=== PATIENT | female | born 1980 | race Two or more races ===

== ENCOUNTER 2017-08-15 18:51 | Emergency (ER) | payer MEDICAID ==
[~2017-08-15] VITALS: Ht 162.6 cm; Wt 53.6 kg
[2017-08-15] MEDS ORDERED: LIDOCAINE HCL 1% 10 ML VIAL INJ ONE (20:45)
[2017-08-15] MEDS ORDERED: PERTUSS(ACELL),DIPH,TET VAC/PF 0.5 ML VIAL IM ONE (20:45)
[2017-08-15] MEDS ORDERED: CIPROFLOXACIN HCL 250 MG TABLET PO ONE (22:00)
[2017-08-15 23:56] VITALS: BP 131/79
== END 2017-08-16 00:32 | disposition home or self-care (01) ==
LOC: EMS 18:52
DX: S91.312A Laceration without foreign body, left foot, initial encounter (principal); F17.210 Nicotine dependence, cigarettes, uncomplicated; F12.10 Cannabis abuse, uncomplicated; W45.8XXA Other foreign body or object entering through skin, initial encounter; Y93.89 Activity, other specified; Y92.89 Other specified places as the place of occurrence of the external cause; Y99.8 Other external cause status
CPT/HCPCS: 12002; 90471; 90715; 99283; J3490; 29515